=== PATIENT | female | born 1950 | race Caucasian/White ===

== ENCOUNTER 2017-03-03 12:35 | Observation (INO) | payer BC ==
--- NOTE | ~2017-03-03 | HP ---
History And Physical [facility] [address] [place]. [address] NAME: JEN NARANJO : 46 STATUS : ADM Leighann PAT#: [id number] AGE: 66 ADM/REG DATE : 03/03/17 MR#: [id number] REPORT SERV DATE: 03/04/17 DICTATED BY: DATE: REPORT STATUS : Draft TRANSCRIBED BY: MODL DATE: 03/04/17 DATE OF ADMISSION: 03/03/2017 She also sees GI, Dr. Blanchard. CHIEF COMPLAINT: Chest pressure and chest pain. HISTORY OF PRESENT ILLNESS: This is a very pleasant 66-year-old white female with no cardiac history, who developed chest pain and chest pressure, an 8/10, with nausea, generalized weakness after breakfast yesterday. She denies the pain radiating anywhere. She denies shortness of breath, chills, diaphoresis, or any palpitations. She reports to have started Viberzi for her colitis about 2 weeks ago and has been having vomiting spells since starting that and assumes that this could be something with her symptoms of generalized weakness and chest pain. Currently, she denies any complaints. She denies any chest pain, shortness of breath, or any palpitations. She denies any personal history of VA, stroke, DVT, or pulmonary embolus. The patient denies any recent fevers or chills. No palpitations. No syncopal episodes. Denies PND or orthopnea. PAST MEDICAL HISTORY: 1. Colitis. 2. Joint pain. SURGICAL HISTORY: Cholecystectomy, hysterectomy, and bilateral cataract surgery. SOCIAL HISTORY: She is with two children. She denies any smoking. Drinks occasional wine and denies any illicit drug use. FAMILY HISTORY: She reports her mother had some heart problems, she is unaware of what kind. Father, she denies ever having any cardiac issues. REVIEW OF SYSTEMS: A 14-point review of systems was performed, significant for HPI. No other contributory diagnosis identified. ALLERGIES: PENICILLIN, REACTION IS A RASH; SULFA, REACTION IS A RASH. HOME MEDICATIONS: Mobic 7.5 p.o. daily as needed for pain, Prilosec 20 p.o. before breakfast, Viberzi 75 p.o. twice a day, melatonin 10 p.o. at bedtime, and Bentyl 20 mg p.o. before meals. PHYSICAL EXAMINATION: RT BP: ; LT BP: ; Pulse: ; RR: ; Temp: ; O2Sat: ; Weight: GENERAL: Cooperative, in no apparent distress. HEENT: Head normocephalic, anicteric. Normal EOM. PERRLA. No xanthelasma. Nares patent. History And Physical [address] [address] NAME: JEN NARANJO : 46 STATUS : ADM Leighann PAT#: [id number] AGE: 66 ADM/REG DATE : 03/03/17 MR#: [id number] REPORT SERV DATE: 03/04/17 DICTATED BY: DATE: REPORT STATUS : Draft TRANSCRIBED BY: MODL DATE: 03/04/17 Moist mucous membranes. NECK: Trachea midline. No thyromegaly, JVD or bruits. RESPIRATORY: Clear to auscultation bilaterally anterior and posterior. Respirations even and unlabored. No wheezes, rhonchi or crackles. CARDIOVASCULAR: Diminished heart sounds. Tenderness to palpation to her chest. ABDOMEN: Soft and tender. Active bowel sounds. EXTREMITIES: No peripheral edema. DP/PT and radial pulses palpable bilaterally. No clubbing or cyanosis. SKIN: Warm, dry and intact. Normal turgor. No pallor or cyanosis. NEURO/PSYCH: Alert, oriented x3 with no acute distress. Affect appropriate to current situation. LABORATORY DATA: Sodium is 145, potassium is 4.3, BUN 13, creatinine 0.72, GFR 100, calcium 9.0, glucose 98, magnesium 2.2. White blood cell 6.1, hemoglobin 12.6, hematocrit 36.7, platelets 170, and INR is 0.9. Troponins x3 less than 0.02 with a BNP of 19.9. Chest x-ray done yesterday shows no acute cardiopulmonary process. EKG on 03/04/2017 at 0043 showed sinus rhythm at 67 with nonspecific T-wave abnormalities. ASSESSMENT AND PLAN: 1. Chest pain, chest pressure. Troponins x3 have been negative, less than 0.02. The patient denies any current chest pain. We will rule out acute coronary syndrome with serial troponins and EKGs. Cardiac risk factors include age and female. We will keep the patient n.p.o. and we will schedule an MPI today. If stress test is low risk with no ischemia, RN is to discharge the patient home with a followup with primary care provider in 1 or 2 weeks. 2. Abdominal pain. Since the patient was started on Viberzi, she has noted an increased nausea and vomiting. She will need to follow up with GI after discharge. 3. Colitis. Since the patient was started on Viberzi, she has noted an increased nausea and vomiting. She will need to follow up with GI after discharge. 4. Joint pain, appears stable. Denies any current pain. We will continue Mobic after discharge if her stress test in negative. EKS/MODL Fritz Toro APN / [id number] CC: JOHN Soto M.D. Alan Shikoh, M.D.
[2017-03-03 14:28] LABS: BASOPHILS 0.3 %; BASOPHILS ABSOLUTE 0.02 10/3/uL (0.0-0.16); EOSINOPHILS 1.2 %; EOSINOPHILS ABSOLUTE 0.07 10/3/uL (0.0-0.53); ER CBC TAT 0 Hrs 09 Mins; HEMATOCRIT 36.7 % (36.0-48.0); HEMOGLOBIN 12.6 g/dL (12.0-16.0); IMMATURE GRANULOCYTES 0.2 %; IMMATURE GRANULOCYTES ABSOLUTE 0.01 10/3/uL (0.0-0.11); LYMPHOCYTES 23.6 %; LYMPHOCYTES ABSOLUTE 1.43 10/3/uL (0.67-4.30); MEAN CORPUS HGB CONC 34.3 g/dL (32.0-36.0); MEAN CORPUSCULAR HEMOGLOB 31.7 pg (26.0-34.0); MEAN CORPUSCULAR VOLUME 92.2 fL (80-100); MEAN PLATELET VOLUME 10.5 fL (9.2-13.0); MONOCYTES 8.4 %; MONOCYTES ABSOLUTE 0.51 10/3/uL (0.21-1.20); NEUTROPHILS 66.3 %; NEUTROPHILS ABSOLUTE 4.01 10/3/uL (2.02-8.40); PLATELET COUNT 170 10/3/uL (150-400); RBC DISTRIBUTION WIDTH 13.5 % (12.0-16.0); RED CELL COUNT 3.98 10/6/uL (4.0-5.6); WHITE BLOOD CELLS 6.1 10/3/uL (4.5-10.5)
[2017-03-03 14:29] LABS: MANUAL DIFF NO %
[2017-03-03 14:35] LABS: INTERNATIONAL NORMAL RATI 0.9 UNITS (-); PARTIAL THROMBO TIME 26.9 SEC (22.5-37.2); PROTIME (NOT ORD) 12.4 SEC (12.0-14.5)
[2017-03-03 14:45] LABS: ALBUMIN 3.8 G/DL (3.5-5.0); BUN (BLOOD UREA NITROGEN) 13 MG/DL (6-23); CHEST PAIN PROFILE TAT 0 Hrs 26 Mins; CHLORIDE, SERUM 110 MMOL/L (96-112); CO2 (CARBON DIOXIDE) 28 MMOL/L (24-34); CREATININE 0.72 MG/DL (0.55-1.02); DIRECT BILIRUBIN 0.3 MG/DL (0.0-0.4); GFR AFRICAN AMERICAN 100 ML/MIN (>=60); GFR NON AFRICAN AMERICAN 86 ML/MIN (>=60); GLUCOSE, SERUM 98 MG/DL (60-99); INDIRECT BILIRUBIN(NOT ORDER) 0.8 MG/DL (0.1-0.9); POTASSIUM, SERUM 4.3 MMOL/L (3.5-5.3); SGPT(ALT) 60 U/L (5-65); SODIUM, SERUM 145 MMOL/L (135-148); TOTAL BILIRUBIN 1.1 MG/DL (0-1.2); TOTAL PROTEIN 6.7 G/DL (6.0-8.5); TROPONIN I <0.02 NG/ML (<0.05)
[2017-03-03 14:46] LABS: ALKALINE PHOSPHATASE 103 U/L (45-117); SGOT(AST) 100 U/L (5-40)
[2017-03-03] MEDS ORDERED: PRILO PO (17:23)
[2017-03-03] MEDS ORDERED: MOBIC7.5 PO (17:23)
[2017-03-03] MEDS ORDERED: BENTYL10 PO (17:24)
[2017-03-03] MEDS ORDERED: MELATONIN10 M2 PO (17:24)
[2017-03-03] MEDS ORDERED: VIBERZI 75 MG PO (17:24)
== END 2017-03-04 15:16 | disposition home or self-care (01) ==
LOC: ER 12:35 → CDU1 17:41
PROVIDERS: Emergency Medicine
DX: R07.89 Other chest pain (principal); K52.9 Noninfective gastroenteritis and colitis, unspecified; R10.9 Unspecified abdominal pain; M25.50 Pain in unspecified joint; Z90.710 Acquired absence of both cervix and uterus; Z98.41 Cataract extraction status, right eye; Z98.42 Cataract extraction status, left eye; Z88.0 Allergy status to penicillin; Z88.2 Allergy status to sulfonamides; Z90.49 Acquired absence of other specified parts of digestive tract; Z88.8 Allergy status to other drugs, medicaments and biological substances; Z79.899 Other long term (current) drug therapy
CPT/HCPCS: 71010; 78452; 80048; 80076; 83690; 83735; 83880; 84484; 85025; 85610; 85730; 93005; 93017; 96374; 99285; A9270-GY; A9502; G0378; J2405